=== PATIENT | male | born 1955 ===

== ENCOUNTER 2024-11-20 20:32 | Emergency (ER) | payer OTHER ==
[2024-11-20] MEDS ORDERED: Amoxicillin 500 MG Cap ONE (21:00)
[2024-11-20] MEDS: Lidocaine 1% with EPINEPHrine 1:100,000 20 ML MDV INJECT ONE (21:00)
[2024-11-20] MEDS ORDERED: Acetaminophen/Codeine 300-30 MG Tab ONE (21:00)
[2024-11-20] MEDS: cefTRIAXone 1 GM Vial IM ONE (21:21)
== END 2024-11-20 21:30 | disposition home or self-care (01) ==
LOC: LB.ED 20:32
DX: S71.132A Puncture wound without foreign body, left thigh, initial encounter (principal); E78.00 Pure hypercholesterolemia, unspecified; Z79.899 Other long term (current) drug therapy; W18.40XA Slipping, tripping and stumbling without falling, unspecified, initial encounter; Y93.89 Activity, other specified
CPT/HCPCS: 12001; 96372; 99283; A9270-GY; J0696; J2004